=== PATIENT | female | born 1990 | race Two or more races ===

== ENCOUNTER 2023-12-29 19:12 | Emergency (ER) | payer BC ==
[~2023-12-29] VITALS: Ht 154.9 cm; Wt 65.6 kg
[2023-12-29 20:13] VITALS: BP 141/85; PULSE 78; RESP 17; TEMP 98.6; O2SAT 99
[2023-12-29] MEDS: DexAMETHasone SOD PHOS 10MG/1ML VIAL INJ IM ONE (21:12)
[2023-12-29] MEDS ORDERED: METH-1181 PO (21:15)
== END 2023-12-29 21:21 | disposition home or self-care (01) ==
LOC: ER 19:12
DX: S16.1XXA Strain of muscle, fascia and tendon at neck level, initial encounter (principal); R51.9 Headache, unspecified; W18.39XA Other fall on same level, initial encounter; Y93.89 Activity, other specified; Y92.89 Other specified places as the place of occurrence of the external cause; Y99.8 Other external cause status
CPT/HCPCS: 70450; 72125; 96372; 99285; J1100